=== PATIENT | female | born 1945 | race Caucasian/White ===

== ENCOUNTER 2016-12-05 19:00 | Inpatient (IN) | payer OTHER, MEDICAID ==
[~2016-12-05] VITALS: Ht 152.4 cm; Wt 99.8 kg
[2016-12-05] MEDS ORDERED: SERT25TA PO (19:27)
[2016-12-05] MEDS ORDERED: ARIP10TA15 PO (19:27)
[2016-12-05 19:31] LABS: EOSINOPHILS # (AUTO) 0.1 /CMM (0.0-0.7); LYMPHOCYTES # (AUTO) 2.8 /CMM (0.8-4.8); WHITE BLOOD COUNT (AUTO) 8.1 K/uL (4.3-11.0)
[2016-12-05] MEDS ORDERED: SILV20CR3 TP (19:32)
[2016-12-05] MEDS ORDERED: ALBU8.5H2 INH (19:32)
[2016-12-05] MEDS ORDERED: VALS320T2 PO (19:32)
[2016-12-05] MEDS ORDERED: ALPR0.5T8 PO (19:32)
[2016-12-05] MEDS ORDERED: OMEP40CA37 PO (19:32)
[2016-12-05] MEDS ORDERED: [UNRECOGNIZED DRUG - OTHER] (19:32)
[2016-12-05] MEDS ORDERED: AMLO10TA2 PO (19:32)
[2016-12-05] MEDS ORDERED: HYDR-3976 PO (19:32)
[2016-12-05] MEDS ORDERED: METO50TA3 PO (19:32)
[2016-12-05 19:43] LABS: CALCIUM, SERUM 9.6 mg/dL (8.5-10.1); CREATININE 0.6 mg/dL (0.6-1.3); POTASSIUM 4.1 mmol/L (3.5-5.1)
[2016-12-05 19:47] LABS: BASOPHILS % (AUTO) 0.5 % (0.0-2.0); EOSINOPHILS % (AUTO) 1.2 % (0.0-6.0); HEMATOCRIT 39 % (33-45); HEMOGLOBIN 12.8 g/dL (11.5-14.8); LYMPHOCYTES % (AUTO) 34.5 % (20.0-44.0); MEAN CORPUSCULAR HEMOGLOBIN 30 PG (26.0-33.0); MEAN CORPUSCULAR HGB CONC 33 g/dl (31.0-36.0); MEAN CORPUSCULAR VOLUME 91 fL (82-100); MONOCYTES # (AUTO) 0.9 /CMM (0.1-1.30); MONOCYTES % (AUTO) 10.6 % (2.0-12.0); NEUTROPHILS # (AUTO) 4.3 /CMM (1.8-8.9); NEUTROPHILS % (AUTO) 53.2 % (43.0-81.0); PLATELET COUNT (AUTO) 378 /CMM (150-450); RED BLOOD CELL COUNT(AUTO) 4.26 MIL/uL (4.0-5.2)
[2016-12-05 19:48] LABS: ALBUMIN 3.4 g/dL (3.4-5.0); BILIRUBIN,TOTAL 0.2 mg/dL (0.2-1.0)
--- NOTE | 2016-12-05 19:50 | NUR ---
REPORT GIVEN TO LOUIE BENAVIDES
--- NOTE | 2016-12-05 19:50 | NUR ---
PT CAME TO BE ADMITTED TO [facility]. PT IS ON A 5150. PT IS AA&O AND IS COOPERATIVE.
--- NOTE | 2016-12-05 20:00 | NUR ---
ADMITTED A 71 Y/O FEMALE FROM [facility], ON 5250 HOLD DTS, BASED ON HOLD, PATIENT WAS BROUGHT IN BY AMBULANCE AND POLICE AFTER SHE WAS FOUND SITTING ON A BUS STOP TRYING TO WAVE ARM ON A AMBULANCE OR POLICE. PATIENT STATED THAT SHE'S BEEN HEARING A MAN VOICE TELLING HER THAT SHE WOULD BE BETTER OFF IF SHE WAS AND THE REASON WHY SHE WAS SITTING ON THE BUS STOP IS BECAUSE SHE WAS LOOKING FOR A WAY TO KILL HERSELF. PATIENT ADMITTING DX. DEPRESSION, PSYCHOSIS AND MEDICAL DX. HYPERTENSION AND HERNIATED DISC. UPON FACE TO FACE EVAL, PATIENT APPEARED ALERT AND ORIENTED X 3-4, CALM AND COOPERATIVE. WHEN ASKED WHEN SHE HAS PLANS TO HURT HERSELF, PATIENT STATED "NOT RIGHT NOW BUT PREVIOUSLY". PATIENT ALSO STATED, SOMETIMES SHE IS HEARING VOICES TELLING HER TO HURT HERSELF. PATIENT ADMITTED THAT SHE IS DEPRESSED AND FINDING A WAY TO GET BETTER. HEAD TO TOE ASSESSMENT DONE, PICTURE DONE, NO SOB, NO ACUTE DISTRESS, BREATHING EVEN AND UNLABORED, NO S/S OF PAIN AND DISCOMFORT, AMBULATORY WITH ASSISTIVE DEVICE, BELONGINGS AND CONTRABAND AND PLACED ON THE SAFE CABINET. KEPT CLEAN, DRY AND COMFORTABLE, NOTIFIED DR. KEENE AND DR. CORTES OF THE ADMISSION AND TO RECONCILE MEDICATION. DAUGHTER NOTIFIED. WILL CONTINUE TO MONITOR [id number] FOR SAFETY
[2016-12-05] MEDS ORDERED: MAG HYDROX/AL HYDROX/SIMETH 30 ML UDC PO PRN (20:30)
[2016-12-05] MEDS ORDERED: MAGNESIUM HYDROXIDE 30 ML UDC PO PRN (20:30)
[2016-12-05] MEDS ORDERED: ACETAMINOPHEN 325 MG TABLET PO PRN (20:30)
[2016-12-05] MEDS: TEMAZEPAM 7.5 MG CAPSULE PO PRN (21:46)
[2016-12-05] MEDS ORDERED: ALBUTEROL SULFATE 8 GM HFA.AER.AD IH PRN (22:00)
[2016-12-05] MEDS ORDERED: SILVER SULFADIAZINE CREAM 400 GM JAR TP PRN (22:00)
[2016-12-05 22:38] VITALS: BP 148/92
[2016-12-06] MEDS: LORAZEPAM 0.5 MG TABLET PO PRN ×3 (00:30→18:47)
[2016-12-06] MEDS ORDERED: HYDROCODONE/APAP 5/325MG 1 EACH TABLET ONE (06:17)
[2016-12-06] MEDS: HYDROCODONE/APAP 5/325MG 1 EACH TABLET PO PRN ×4 (06:22→20:34)
[2016-12-06 06:44] LABS: BASOPHILS % (AUTO) 0.4 % (0.0-2.0); EOSINOPHILS # (AUTO) 0.2 /CMM (0.0-0.7); HEMATOCRIT 39 % (33-45); HEMOGLOBIN 13.3 g/dL (11.5-14.8); LYMPHOCYTES # (AUTO) 2.2 /CMM (0.8-4.8); MEAN CORPUSCULAR HEMOGLOBIN 31 PG (26.0-33.0); MEAN CORPUSCULAR HGB CONC 34 g/dl (31.0-36.0); MEAN CORPUSCULAR VOLUME 92 fL (82-100); MONOCYTES # (AUTO) 0.8 /CMM (0.1-1.30); MONOCYTES % (AUTO) 10.1 % (2.0-12.0); NEUTROPHILS # (AUTO) 4.6 /CMM (1.8-8.9); NEUTROPHILS % (AUTO) 59.5 % (43.0-81.0); PLATELET COUNT (AUTO) 331 /CMM (150-450); RDW COEFFICIENT OF VARIATION 14.2 (11.5-15.0); RED BLOOD CELL COUNT(AUTO) 4.23 MIL/uL (4.0-5.2); WHITE BLOOD COUNT (AUTO) 7.7 K/uL (4.3-11.0)
[2016-12-06 06:52] LABS: ALBUMIN 3.2 g/dL (3.4-5.0); BILIRUBIN,TOTAL 0.3 mg/dL (0.2-1.0); CALCIUM, SERUM 9.8 mg/dL (8.5-10.1); CREATININE 0.4 mg/dL (0.6-1.3); TOTAL PROTEIN, SERUM 6.8 g/dL (6.4-8.2)
[2016-12-06] MEDS ORDERED: LORA1TAB PO (07:58)
[2016-12-06] MEDS ORDERED: VALS80TA2 PO (07:58)
[2016-12-06] MEDS ORDERED: MAGN400O6 PO (07:58)
[2016-12-06] MEDS ORDERED: CALC500T13 PO (07:58)
[2016-12-06] MEDS ORDERED: TEMA15CA5 PO (07:58)
[2016-12-06] MEDS ORDERED: METO25TA6 PO (07:58)
[2016-12-06] MEDS ORDERED: ACET-868 PO (07:58)
[2016-12-06 08:00] VITALS: BP 154/81
[2016-12-06] MEDS ORDERED: ALBUTEROL FS 2.5 MG/3 ML VIAL.NEB NEB PRN (08:00)
[2016-12-06] MEDS: AMLODIPINE BESYLATE 10 MG TABLET PO SCH ×2 (08:21→10:49)
[2016-12-06] MEDS: VALSARTAN 80 MG TABLET PO SCH (08:21)
[2016-12-06] MEDS: PANTOPRAZOLE 40 MG TABLET.DR PO SCH (08:21)
--- NOTE | 2016-12-06 10:49 | NUR ---
ADMINISTERED NARCO 5/325 MG PO PRN PER PATIENT REQUEST FOR PAIN 03/08, V/S TAKE BP-146/74, P-94, CONTINUED MONITORING. ENCOURAGED TO INCREASE FLUID INTAKE.
[2016-12-06] MEDS: METOPROLOL TARTRATE 50 MG TABLET PO SCH ×2 (10:55→20:33)
--- NOTE | 2016-12-06 12:10 | NUR ---
ADMINISTERED ATIVAN 0.5 MG PO PRN PER PATIENT REQUEST FOR ANXIETY. V/S TAKEN BP-140/76, P-81, CONTINUED MONITORING.
[2016-12-06 15:55] VITALS: BP 127/63
--- NOTE | 2016-12-06 16:32 | NUR ---
ADMINISTERED NARCO 5/325 MG PO PRN PER PATIENT REQUEST, FOR LOWER BACK PAIN, V/S TAKE BP-127/63, P-99, CONTINUED MONITORING.
--- NOTE | 2016-12-06 18:47 | NUR ---
ADMINISTERED ATIVAN 0.5 MG PO PRN FOR ANXIETY, PER PATIENT REQUEST, V/S TAKEN BP-138/78, P-88, CONTINUED MONITORING.
[2016-12-06 20:00] VITALS: BP 149/84
--- NOTE | 2016-12-06 20:12 | NUR ---
RECEIVED PATIENT IN BED, ALERT AND ORIENTED X4, CALM, NO SOB, NO RESPIRATORY DISTRESS, APPROPRIATE AFFECT, NO SI/HI IDEATION AT THIS TIME, ANSWERS QUESTIONS APPROPRIATELY, NO BEHAVIOR PROBLEM AT THIS TIME, KEPT SAFE AND COMFORTABLE, WILL CONTINUE TO MONITOR.
[2016-12-06] MEDS ORDERED: SERTRALINE HCL 25 MG TABLET ONE (20:23)
[2016-12-06] MEDS ORDERED: SERTRALINE HCL 25 MG TABLET PO SCH (20:30)
--- NOTE | 2016-12-06 20:44 | NUR ---
SERTRALINE RETURNED, DR. ROGERS CHANGED SCHEDULE OF MEDICATION
--- NOTE | 2016-12-06 20:52 | NUR ---
NORCO 5/325 MG 1 TAB PO GIVEN, PATIENT COMPLAINING OF PAIN TO RIGHT KNEE AND NECK 02/05, WILL CONTINUE TO MONITOR.
[2016-12-06 22:00] VITALS: BP 149/84
[2016-12-07] MEDS: TEMAZEPAM 7.5 MG CAPSULE PO PRN (00:01)
[2016-12-07] MEDS: HYDROCODONE/APAP 5/325MG 1 EACH TABLET PO PRN ×4 (06:30→21:25)
--- NOTE | 2016-12-07 06:31 | NUR ---
GIVEN NORCO 5/325 1 TAB PO FOR LOWER BACK OF 02/05
--- NOTE | 2016-12-07 06:44 | NUR ---
PATIENT IN BED, ALERT AND AWAKE, NO SOB, PROVIDED PAIN MEDICATION DURING SHIFT, SLEPT FOR 8 HOURS, NO BEHAVIOR DISTURBANCE DURING SHIFT, ALL DUE MEDICATIONS GIVEN, KEPT SAFE AND COMFORTABLE.
[2016-12-07] MEDS: VALSARTAN 80 MG TABLET PO SCH (07:54)
[2016-12-07] MEDS: METOPROLOL TARTRATE 50 MG TABLET PO SCH ×2 (07:55→21:00)
[2016-12-07] MEDS: PANTOPRAZOLE 40 MG TABLET.DR PO SCH (07:55)
[2016-12-07 08:05] VITALS: BP 128/74
[2016-12-07] MEDS: SERTRALINE HCL 25 MG TABLET PO SCH (08:06)
[2016-12-07] MEDS: LORAZEPAM 0.5 MG TABLET PO PRN ×2 (08:06→15:14)
[2016-12-07] MEDS: ARIPIPRAZOLE 5 MG TABLET PO SCH (08:06)
--- NOTE | 2016-12-07 08:06 | NUR ---
ADMINISTERED ATIVAN 0.5 MG PO PRN FOR ANXIETY PER PATIENT REQUEST, BP -128/74, P-75, CONTINUED MONITORING.
--- NOTE | 2016-12-07 11:36 | NUR ---
ADMINISTERED NARCO 5/325 MG PO PRN FOR CHRONIC LOWER BACK PAIN 03/08 PER PATIENT REQUEST, V/S TAKEN, BP-132/78, P-83, CONTINUED MONITORING.
--- NOTE | 2016-12-07 15:14 | NUR ---
ADMINISTERED ATIVAN 0.5 MG PO PRN FOR ANXIETY, PER PATIENT REQUEST, V/S TAKE BP-129/78, P-85, CONTINUED MONITORING.
--- NOTE | 2016-12-07 16:48 | NUR ---
ADMINISTERED NARCO 5/325 MG PO PRN FOR LOWER BACK PAIN, PER PATIENT REQUEST, V/S TAKEN BP-130/78, P-89, CONTINUED MONITORING.
[2016-12-07 20:11] VITALS: BP 101/59
[2016-12-08 08:00] VITALS: BP 142/78
[2016-12-08] MEDS: VALSARTAN 80 MG TABLET PO SCH (08:18)
[2016-12-08] MEDS: SERTRALINE HCL 25 MG TABLET PO SCH (08:18)
[2016-12-08] MEDS: ARIPIPRAZOLE 5 MG TABLET PO SCH (08:18)
[2016-12-08] MEDS: PANTOPRAZOLE 40 MG TABLET.DR PO SCH (08:18)
[2016-12-08] MEDS: HYDROCODONE/APAP 5/325MG 1 EACH TABLET PO PRN ×4 (08:19→22:15)
[2016-12-08] MEDS: AMLODIPINE BESYLATE 10 MG TABLET PO SCH (08:19)
--- NOTE | 2016-12-08 08:19 | NUR ---
ADMINISTERED NARCO 5/325 MG PO PRN FOR CHRONIC LOWER BACK PAIN PER PATIENT REQUEST, V/S TAKE BP- 142/ 78, P-92, CONTINUED MONITORING.
[2016-12-08] MEDS: METOPROLOL TARTRATE 50 MG TABLET PO SCH ×2 (08:20→22:15)
--- NOTE | 2016-12-08 12:21 | NUR ---
administered narco 5/325 mg po prn for lower back pain 03/08 per patient request as prescribed, v/s take bp 134/76, p-88, continued monitoring.
[2016-12-08] MEDS: LORAZEPAM 0.5 MG TABLET PO PRN (15:12)
--- NOTE | 2016-12-08 15:12 | NUR ---
administered ativan 0.5 mg po prn for anxiety, v/s taken stable bp -132/84, p-87, continued monitoring.
[2016-12-08 16:00] VITALS: BP 124/76
--- NOTE | 2016-12-08 16:28 | NUR ---
Initial discharge plan:Pt. lives with daughter Kailee, [address] [place] [address] and wants to return. SW will follow up with daughter and will confirm if pt. is able to return back home. MARGRET will follow up with MD and will arrange for safe and proper discharge.
--- NOTE | 2016-12-08 18:08 | NUR ---
ADMINISTERED NARCO 5/325 MG PO PRN FOR CHRONIC LOWER BACK PAIN 03/08, PER PATIENT REQUEST, V/S TAKE BP-124/76, P-76, CONTINUED MONITORING.
[2016-12-08 20:00] VITALS: BP 126/85
[2016-12-09] MEDS: HYDROCODONE/APAP 5/325MG 1 EACH TABLET PO PRN ×4 (07:00→20:27)
[2016-12-09 08:00] VITALS: BP 143/76
[2016-12-09] MEDS: AMLODIPINE BESYLATE 10 MG TABLET PO SCH (08:15)
[2016-12-09] MEDS: SERTRALINE HCL 25 MG TABLET PO SCH (08:15)
[2016-12-09] MEDS: VALSARTAN 80 MG TABLET PO SCH (08:16)
[2016-12-09] MEDS: PANTOPRAZOLE 40 MG TABLET.DR PO SCH (08:16)
[2016-12-09] MEDS: ARIPIPRAZOLE 5 MG TABLET PO SCH (08:16)
[2016-12-09] MEDS: METOPROLOL TARTRATE 50 MG TABLET PO SCH ×2 (08:17→20:26)
[2016-12-09] MEDS: LORAZEPAM 0.5 MG TABLET PO PRN (08:53)
--- NOTE | 2016-12-09 09:00 | NUR ---
GPS/RN PATIENT IS ANXIOUS, RESTLESS, REQUESTED ATIVAN, ADMINISTERED ATIVAN PO ORDERED, WILL CONTINUE TO MONITOR.
--- NOTE | 2016-12-09 10:18 | NUR ---
GPS/RN PATIENT PRESENTING WITH ANXIETY, REQUESTED ATIVAN, ADMINISTERED ATIVAN 0.5 ORDERED, WILL CONTINUE TO MONITOR.
--- NOTE | 2016-12-09 10:34 | NUR ---
MARGRET left a voicemail for pt's daughter, Kailee, notifying her of pt's discharge tomorrow and asking to call back to confirm that pt. will be picked up. Will follow up Addendum: 12/10/16 at 1248 by MALORIE OSWALD MARGRET left a voicemail for pt's daughter, Kailee, again asking to call back to discuss discharge plan. Will follow up again
--- NOTE | 2016-12-09 10:56 | NUR ---
UR update: MARGRET faxed clinicals (H&Ps, med list, [phone], updated clinicals) to [facility] [phone] phone [phone]. Will follow up
--- NOTE | 2016-12-09 11:31 | NUR ---
GPS/RN PATIENT REPORTS 9/10 LOWER BACK PAIN, ADMINISTERED NORCO PO ORDERED, WILL CONTINUE TO MONITOR.
--- NOTE | 2016-12-09 15:00 | NUR ---
GPS/RN PATIENT REPORTED FEELING HOPELESS, STATED HER CHILDREN DO NOT WANT HER AT HOME, STATED "I WANT TO KILL MYSELF" BUT STATES NO PLAN AT THIS TIME WHEN ASSESSED. DR PEREZ IS AWARE, WITH NO NEW ORDER AT THIS TIME, WILL CONTINUE TO MONITOR Q 15 MIN FOR SAFETY AND BEHAVIOR.
--- NOTE | 2016-12-09 15:58 | NUR ---
GPS/RN PATIENT REPORTS 8/10 LOWER BACK PAIN, ADMINISTERED NORCO PO ORDERED, WILL CONTINUE TO MONITOR.
[2016-12-09 16:00] VITALS: BP 154/70
--- NOTE | 2016-12-09 18:29 | NUR ---
GPS/RN UPON REASSESSMENT, PATIENT IS CALM WITH BRIGHT AFFECT, DENIES SI AT THIS TIME,ENCOURAGED TO VERBALIZE FEELINGS AND CONCERNS, WILL CONTINUE TO MONITOR Q 15 MIN FOR SAFETY AND BEHAVIOR.
[2016-12-09] MEDS ORDERED: Z GUARD REMEDY 2 OZ OINT TP PRN (18:30)
[2016-12-09 20:50] VITALS: BP 132/71
[2016-12-09] MEDS: TEMAZEPAM 7.5 MG CAPSULE PO PRN (21:04)
--- NOTE | 2016-12-09 21:05 | NUR ---
GPS/RN NOTE: C/O INSOMNIA, TEMAZEPAM 7.5 MG CAP 1 PO GIVEN.
[2016-12-10] MEDS: PANTOPRAZOLE 40 MG TABLET.DR PO SCH (08:07)
[2016-12-10] MEDS: SERTRALINE HCL 25 MG TABLET PO SCH (08:07)
[2016-12-10] MEDS: ARIPIPRAZOLE 5 MG TABLET PO SCH (08:07)
[2016-12-10] MEDS: HYDROCODONE/APAP 5/325MG 1 EACH TABLET PO PRN ×4 (08:20→22:04)
--- NOTE | 2016-12-10 08:21 | NUR ---
OUTER DIAMETER TECHNICIAN-NOTES PATIENT C/O 9/10 LOWER BACK PAIN. NORCO 5MG/325MG P.O GIVEN PRN ORDER. WILL CONT. MONITORING FOR SAFETY.
[2016-12-10 08:26] VITALS: BP 100/70
[2016-12-10] MEDS: METOPROLOL TARTRATE 50 MG TABLET PO SCH ×2 (09:19→20:56)
[2016-12-10] MEDS: AMLODIPINE BESYLATE 10 MG TABLET PO SCH (09:19)
[2016-12-10] MEDS: VALSARTAN 80 MG TABLET PO SCH (09:20)
[2016-12-10 09:22] VITALS: BP 115/66
--- NOTE | 2016-12-10 12:49 | NUR ---
UR update: MARGRET spoke with Monserrat from [employer] [facility] [phone] and he requested paperwork to be faxed. MARGRET faxed everything that was requested.
--- NOTE | 2016-12-10 12:49 | NUR ---
UR update: MARGRET faxed updated clinicals to [facility] [phone] phone [phone]. Will follow up
--- NOTE | 2016-12-10 13:08 | NUR ---
GENETICS PHYSICIAN-NOTES PATIENT C/O 9/10 LOWER BACK PAIN. NORCO 5MG/325MG P.O GIVEN PRN ORDER. WILL CONT. MONITORING FOR SAFETY.
[2016-12-10 15:34] VITALS: BP 137/69
--- NOTE | 2016-12-10 16:08 | NUR ---
Aspen from [facility] [address] [address] came to assess the patient and is able to accept her tomorrow.
[2016-12-10] MEDS: LORAZEPAM 0.5 MG TABLET PO PRN (16:12)
--- NOTE | 2016-12-10 16:13 | NUR ---
INSPECTOR PAWNSHOP DETAIL-NOTES PATIENT STATED " I NEED MY ANXIETY MEDICATIONS,I'M ANXIOUS". ATIVAN 0.5MG P.O GIVEN PRN ORDER. WILL CONT. MONITORING FOR SAFETY AND BEHAVIOR.
--- NOTE | 2016-12-10 17:44 | NUR ---
BOTTOM POUNDER CEMENT SHOES-NOTES PATIENT C/O 9/10 LOWER BACK PAIN. NORCO 5MG/325MG P.O GIVEN PRN ORDER. WILL CONT. MONITORING FOR SAFETY.
[2016-12-10 19:52] VITALS: BP 125/76
--- NOTE | 2016-12-10 22:05 | NUR ---
GPS/RN NOTE: C/O BACK PAIN, 7/10 ON PAIN SCALE, NORCO 5/325 MG TAB PO GIVEN.
[2016-12-10] MEDS: TEMAZEPAM 7.5 MG CAPSULE PO PRN (23:04)
--- NOTE | 2016-12-10 23:04 | NUR ---
GPS/RN NOTE: PATIENT UNABLE TO SLEEP, REQUESTING FOR A SLEEPING PILL, TEMAZEPAM 7.5 MG PO GIVEN.
--- NOTE | 2016-12-11 07:05 | NUR ---
GPS/RN NOTE: PATIENT SLEPT AT LONG INTERVAL, NO ACUTE DISTRESS NOTED.
[2016-12-11] MEDS: HYDROCODONE/APAP 5/325MG 1 EACH TABLET PO PRN (07:09)
--- NOTE | 2016-12-11 07:10 | NUR ---
GPS/RN NOTE: C/O LOWER BACK PAIN, 7/10 ON PAIN SCALE, NORCO TAB 5/325 MG PO GIVEN.
[2016-12-11 08:00] VITALS: BP 117/67
[2016-12-11] MEDS: ARIPIPRAZOLE 5 MG TABLET PO SCH (08:16)
[2016-12-11] MEDS: SERTRALINE HCL 25 MG TABLET PO SCH (08:16)
[2016-12-11] MEDS: PANTOPRAZOLE 40 MG TABLET.DR PO SCH (08:16)
[2016-12-11] MEDS: AMLODIPINE BESYLATE 10 MG TABLET PO SCH (08:18)
[2016-12-11 08:19] VITALS: BP 117/67
[2016-12-11] MEDS: VALSARTAN 80 MG TABLET PO SCH (08:19)
[2016-12-11] MEDS: METOPROLOL TARTRATE 50 MG TABLET PO SCH (08:19)
--- NOTE | 2016-12-11 08:39 | NUR ---
WOUND CARE CONSULT PER NURSING PATIENT IS BEING DISCHARGED TODAY. PATIENT HAS MILD MOISTURE RELATED REDNESS TO THE ABDOMINAL AND BREAST FOLDS AND THERE ARE CURRENT MD ORDERS FOR Z GUARD APPLICATION. PATIENT IS AMBULATORY AND CURRENT ÁNGEL AT 23. WILL SEE PRN.
[2016-12-11] MEDS: LORAZEPAM 0.5 MG TABLET PO PRN (11:43)
--- NOTE | 2016-12-11 11:45 | NUR ---
GPS RN: ATIVAN 0.5MG ADMINISTERED PO FOR C/O ANXIETY
--- NOTE | 2016-12-11 15:30 | NUR ---
GPS RN: PATIENT DISCHARGED TO [facility]. PATIENT'S CONDITION IS STABLE FOR DISCHARGE. VS STABLE. PATIENT DENIES ANY SI/HI/AVH AT THE TIME OF DISCHARGE. ALL BELONGINGS RETURNED TO THE PATIENT. ALL FORMS SIGNED. PATIENT PROVIDED WITH EDUCATIONAL EXIT CARE AND PRESCRIPTIONS, WHICH WAS ALSO FAXED TO THE [facility]. PATIENT LEFT THE UNIT IN A WHEELCHAIR ACCOMPANIED BY STAFF BILLIE, WILL BE GOING VIA TAXI.
--- NOTE | 2016-12-11 15:39 | NUR ---
Discharge note: Pt. will discharge to [facility] [address] [facility] [place] [address] via taxi. Pt. needs RX. Prescriptions were faxed to [facility] [phone] phone [phone]. Pt. will follow up with Therapist Shanna N[place] [address] [facility] [address] Jeremias Escobar at [address] [place] [phone] . Pt. needs to call to make appointments per Ainsley from [facility] [phone]. Pt. was calm and cooperative upon discharge, denied suicidal/homicidal ideations and agreed with the discharge plan. SW signed the discharge paperwork and discharge instructions have been provided to the patient.
--- NOTE | 2016-12-11 16:46 | NUR ---
UR update: faxed discharge clinicals to [facility] [phone] phone [phone]. Will follow up
== END 2016-12-11 15:30 | DRG 885 ==
LOC: ER 19:04 → GPS 19:57
PROVIDERS: ADMIT Psychiatry & Neurology Psychiatry; ATTEND Nurse Practitioner Acute Care
DX: F33.3 Major depressive disorder, recurrent, severe with psychotic symptoms (principal); E44.1 Mild protein-calorie malnutrition; R45.851 Suicidal ideations; Z68.41 Body mass index [BMI] 40.0-44.9, adult; F41.9 Anxiety disorder, unspecified; E78.00 Pure hypercholesterolemia, unspecified; G89.29 Other chronic pain; I10 Essential (primary) hypertension; I25.10 Atherosclerotic heart disease of native coronary artery without angina pectoris; K21.9 Gastro-esophageal reflux disease without esophagitis; Z79.899 Other long term (current) drug therapy; F20.0 Paranoid schizophrenia; E88.09 Other disorders of plasma-protein metabolism, not elsewhere classified
CPT/HCPCS: 36415; 80048-TC; 80053-TC; 80061-TC; 80076-TC; 85025-TC; 87081-TC; A4606; Z7610